=== PATIENT | male | born 1980 ===

== ENCOUNTER 2020-10-07 13:40 | Outpatient (REF) | payer OTHER, SELFPAY ==
[2020-10-07 14:09] LABS: COVID-19 Test Negative (Negative)
== END 2020-10-07 13:41 | disposition home or self-care (01) ==
LOC: HO.LAB 13:40
PROVIDERS: Visit Provider Internal Medicine
DX: Z20.822 Contact with and (suspected) exposure to COVID-19 (principal)
CPT/HCPCS: 36415; 87635; C9803

== ENCOUNTER 2020-10-28 13:53 | Outpatient (REF) | payer OTHER, SELFPAY ==
[2020-10-28 14:19] LABS: COVID-19 Test Negative (Negative)
== END 2020-10-28 13:54 | disposition home or self-care (01) ==
LOC: HO.LAB 13:53
PROVIDERS: Visit Provider Internal Medicine
DX: Z20.822 Contact with and (suspected) exposure to COVID-19 (principal)
CPT/HCPCS: 36415; 87635; C9803

== ENCOUNTER 2021-05-22 11:31 | Outpatient (REF) | payer OTHER, SELFPAY ==
[2021-05-22 12:17] LABS: COVID-19 Test Negative (Negative)
== END 2021-05-22 11:32 | disposition home or self-care (01) ==
LOC: HO.LAB 11:31
PROVIDERS: PCP Internal Medicine; Visit Provider Internal Medicine
DX: Z20.822 Contact with and (suspected) exposure to COVID-19 (principal)
CPT/HCPCS: 36415; 87635; C9803

== ENCOUNTER 2021-06-27 13:29 | Outpatient (REF) | payer OTHER, SELFPAY ==
[2021-06-27 15:03] LABS: Binax Now Covid-19 Ag Negative (Negative)
[2021-06-27 15:04] LABS: Binax Internal Control QC Valid
== END 2021-06-27 13:30 | disposition home or self-care (01) ==
LOC: HO.LAB 13:29
PROVIDERS: Visit Provider Internal Medicine
DX: Z20.822 Contact with and (suspected) exposure to COVID-19 (principal)
CPT/HCPCS: 36415; C9803

== ENCOUNTER → 2022-01-23 14:30 | Outpatient (BNVA) | payer OTHER, SELFPAY | PROVIDERS: PCP Internal Medicine; Visit Provider Nurse Practitioner Family | DX: M62.830 Muscle spasm of back (principal); M96.1 Postlaminectomy syndrome, not elsewhere classified; M47.816 Spondylosis without myelopathy or radiculopathy, lumbar region; M54.16 Radiculopathy, lumbar region; M46.1 Sacroiliitis, not elsewhere classified; R29.898 Other symptoms and signs involving the musculoskeletal system | CPT/HCPCS: 99202 ==

== ENCOUNTER 2022-01-26 12:35 | Outpatient (REF) | payer OTHER, SELFPAY ==
--- NOTE | ~2022-01-26 | XR_ITS ---
EXAMINATION: LUMBAR SPINE AND SACROILIAC JOINTS X-RAYS CLINICAL INFORMATION: Post laminectomy syndrome COMPARISON: None TECHNIQUE: 7 views of the lumbar spine including bilateral oblique and flexion and extension 3 views of the sacroiliac joints FINDINGS: Lumbar spine: There are postsurgical changes with posterior rods and interpedicular screws at L4-L5 and S1. Orthopedic hardware appears intact. There is lucency adjacent to the bilateral S1 pedicular screws questionable for evidence of loosening. No stability on flexion-extension views is seen. Disc spaces are normal. Sacroiliac joints: Sacroiliac joints are normal. No evidence of proliferative or erosive arthritis is seen. XR/XR sacroiliac joint min 3V IMPRESSION: Lumbar spine: Postsurgical changes from L4 to S1. Lucency adjacent to the bilateral S1 interpedicular screws questionable for evidence of loosening. Sacroiliac joints: Unremarkable exam.
--- NOTE | ~2022-01-26 | XR_ITS ---
EXAMINATION: LUMBAR SPINE AND SACROILIAC JOINTS X-RAYS CLINICAL INFORMATION: Post laminectomy syndrome COMPARISON: None TECHNIQUE: 7 views of the lumbar spine including bilateral oblique and flexion and extension 3 views of the sacroiliac joints FINDINGS: Lumbar spine: There are postsurgical changes with posterior rods and interpedicular screws at L4-L5 and S1. Orthopedic hardware appears intact. There is lucency adjacent to the bilateral S1 pedicular screws questionable for evidence of loosening. No stability on flexion-extension views is seen. Disc spaces are normal. Sacroiliac joints: Sacroiliac joints are normal. No evidence of proliferative or erosive arthritis is seen. XR/XR lumbar spine 6V w bending IMPRESSION: Lumbar spine: Postsurgical changes from L4 to S1. Lucency adjacent to the bilateral S1 interpedicular screws questionable for evidence of loosening. Sacroiliac joints: Unremarkable exam.
== END 2022-01-26 12:36 | disposition home or self-care (01) ==
LOC: HO.XRAY 12:35
PROVIDERS: PCP Internal Medicine; Visit Provider Nurse Practitioner Family
DX: M47.816 Spondylosis without myelopathy or radiculopathy, lumbar region (principal); M54.16 Radiculopathy, lumbar region; M96.1 Postlaminectomy syndrome, not elsewhere classified; M46.1 Sacroiliitis, not elsewhere classified
CPT/HCPCS: 72114; 72202

== ENCOUNTER 2022-03-25 12:31 | Outpatient (REF) | payer OTHER, SELFPAY ==
[2022-03-25 13:57] LABS: IDNOW Serial# 16C4AD1C
[2022-03-25 13:58] LABS: COVID-19 Test Negative (Negative)
== END 2022-03-25 12:32 | disposition home or self-care (01) ==
LOC: HO.LAB 12:31
PROVIDERS: Visit Provider Internal Medicine
DX: Z20.822 Contact with and (suspected) exposure to COVID-19 (principal)
CPT/HCPCS: 87635; C9803

== ENCOUNTER 2022-04-22 15:45 | Outpatient (REF) | payer OTHER, SELFPAY ==
--- NOTE | 2022-04-22 10:15 | EMG_ITS ---
Please see scanned EMG / Nerve Conduction Report. MTDD
== END 2022-04-22 15:46 | disposition home or self-care (01) ==
LOC: HO.NEURO 15:45
PROVIDERS: PCP Internal Medicine; Visit Provider Nurse Practitioner Family
DX: M54.16 Radiculopathy, lumbar region (principal); M96.1 Postlaminectomy syndrome, not elsewhere classified; R29.898 Other symptoms and signs involving the musculoskeletal system
CPT/HCPCS: 95885; 95910; 95911

== ENCOUNTER → 2022-04-27 11:15 | Outpatient (BNVA) | payer OTHER, SELFPAY | PROVIDERS: PCP Internal Medicine; Visit Provider Nurse Practitioner Family | DX: M96.1 Postlaminectomy syndrome, not elsewhere classified (principal); M54.16 Radiculopathy, lumbar region; R29.898 Other symptoms and signs involving the musculoskeletal system; M46.1 Sacroiliitis, not elsewhere classified; M47.816 Spondylosis without myelopathy or radiculopathy, lumbar region; M62.830 Muscle spasm of back | CPT/HCPCS: 99212 ==

== ENCOUNTER 2022-06-16 18:05 | Outpatient (REF) | payer OTHER, SELFPAY | END 2022-06-16 18:06 | disposition home or self-care (01) | LOC: HO.MRI 18:05 | PROVIDERS: Visit Provider Nurse Practitioner Family | DX: Z13.89 Encounter for screening for other disorder (principal) ==

== ENCOUNTER 2022-09-24 09:33 | Outpatient (REF) | payer OTHER, SELFPAY ==
--- NOTE | ~2022-09-24 | MR_ITS ---
EXAMINATION: MR LUMBAR SPINE WITHOUT AND WITH CONTRAST CLINICAL INFORMATION: Post laminectomy syndrome. COMPARISON: Lumbar spine radiographs 01/26/2022. TECHNIQUE: Multiplanar MR imaging of the lumbar spine was performed without and with contrast. A total of 10 mL Gadavist was utilized for this examination. FINDINGS: There are chronic postoperative changes of a posterior spinal fusion with transpedicular hardware extending from L4 to S1. Alignment is normal. Vertebral heights are preserved. No acute bone marrow signal changes. There is disc desiccation at multiple levels without substantial loss of intervertebral disc height. The tip of the conus medullaris is located at L1. No mass effect on the conus. Visualized distal cord signal intensity is normal. At L1-L2 the annular contour is normal. No canal or neuroforaminal compromise. At L2-L3 the annular contour is normal. No canal or neuroforaminal compromise. At L3-L4 there is a bulging disc. Bilateral facet degenerative change. No canal stenosis. No mass effect on the traversing or foraminal nerve roots. At L4-L5 the canal is decompressed. No mass effect on the traversing or foraminal nerve roots. At L5-S1 the canal is decompressed. No mass effect on the traversing or foraminal nerve roots. Limited visualization of the retroperitoneal anatomy reveals no abnormal finding. Psoas and paraspinal muscle groups are symmetric. MR/MR lumbar spine wo/w con IMPRESSION: There are chronic postoperative changes of a posterior spinal fusion with transpedicular hardware extending from L4 to S1. There is junctional arthrosis of the articular facet joints above the fusion at the level of L3-L4. No canal stenosis. No mass effect on the traversing or foraminal nerve roots.
== END 2022-09-24 09:34 | disposition home or self-care (01) ==
LOC: HO.MRI 09:33
PROVIDERS: PCP Internal Medicine; Visit Provider Nurse Practitioner Family
DX: M96.1 Postlaminectomy syndrome, not elsewhere classified (principal); M54.16 Radiculopathy, lumbar region; R29.898 Other symptoms and signs involving the musculoskeletal system; M47.816 Spondylosis without myelopathy or radiculopathy, lumbar region
CPT/HCPCS: 72158; A9585

== ENCOUNTER → 2022-11-10 15:44 | Outpatient (BNVA) | payer OTHER, SELFPAY | PROVIDERS: PCP Internal Medicine; Visit Provider Nurse Practitioner Family | DX: M96.1 Postlaminectomy syndrome, not elsewhere classified (principal); M47.26 Other spondylosis with radiculopathy, lumbar region; M46.1 Sacroiliitis, not elsewhere classified; M62.830 Muscle spasm of back; R29.898 Other symptoms and signs involving the musculoskeletal system | CPT/HCPCS: 99212 ==

== ENCOUNTER 2023-09-14 13:52 | Outpatient (AMB) | payer OTHER, SELFPAY ==
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
[2023-09-14 13:58] VITALS: BP 150/80; PULSE 55; O2SAT 100; BMI 32.8
== END 2023-09-14 14:22 | disposition home or self-care (01) ==
PROVIDERS: PCP Internal Medicine; Visit Provider Nurse Practitioner Family
DX: M54.16 Radiculopathy, lumbar region (principal); M96.1 Postlaminectomy syndrome, not elsewhere classified; M47.816 Spondylosis without myelopathy or radiculopathy, lumbar region; R22.2 Localized swelling, mass and lump, trunk; R29.898 Other symptoms and signs involving the musculoskeletal system; M46.1 Sacroiliitis, not elsewhere classified; M62.830 Muscle spasm of back
CPT/HCPCS: 99214

== ENCOUNTER → 2023-09-14 13:52 | Outpatient (BNVA) | payer OTHER, SELFPAY | PROVIDERS: PCP Internal Medicine; Visit Provider Nurse Practitioner Family | DX: M54.16 Radiculopathy, lumbar region (principal); M96.1 Postlaminectomy syndrome, not elsewhere classified; M47.816 Spondylosis without myelopathy or radiculopathy, lumbar region; M46.1 Sacroiliitis, not elsewhere classified; M62.830 Muscle spasm of back; R22.2 Localized swelling, mass and lump, trunk; R29.898 Other symptoms and signs involving the musculoskeletal system | CPT/HCPCS: 99212 ==

== ENCOUNTER 2023-10-18 14:57 | Outpatient (AMB) | payer OTHER, SELFPAY ==
--- NOTE | 2023-10-18 14:58 | MHC.OFFVIS ---
Vital Signs 10/18/23 15:08 Height 5 ft 9 in Weight 217 lb BMI 32.0 BP 156/82 H Blood Pressure Location Rt brachial Position Sitting Pulse 61 Intake Visit Reasons: 2 painful lumps along the mid-lower back midline Intake Note: Patient referred for 2 bumps on back. Present for more than 1yr. Patient thinks bumps are present since last back surgical procedure. Patient c/o: growths have been enlarging. Denies pain, itch, oozing. Accompanied by: Self / Same As Patient Allergies Iodinated Contrast Media Adverse Reaction (Unknown, Verified 10/18/23 15:03) Nausea HPI Comments Details: Patient presents for evaluation of 2 soft tissue mass/lipomas of the back. He has had this for many years time. He wishes to have them evaluated. He has had lipomas elsewhere excised. Chart was reviewed and patient evaluated. Patient has had lower back surgery in the past [facility] Medical History History of Clostridioides difficile infection Allergic rhinitis Hyperlipidemia Depression GERD (gastroesophageal reflux disease) History of fracture of hand Anxiety Obesity (BMI 30.0-34.9) Snoring Chronic left-sided lumbar radiculopathy Failed back syndrome of lumbar spine Surgical History History of lumbar fusion History of appendectomy Social History (Updated 10/18/23 @ 15:05 by HEATHER Portillo) Alcohol intake: never Patient Tobacco Use Status: Never used Tobacco Physical Exam Vital Signs: Last Vital Signs Pulse 61 10/18/23 15:08 BP 156/82 H 10/18/23 15:08 BMI result Body Mass Index 32.0 Back/Spine/Pelvis Other: Lower midline scar from back surgery. Patient has to the left lower back proximally 4 x 3 cm mass consistent with a lipoma. He has a similar mass in the right lower back measuring approximately 3 x 2 cm Assessment & Plan Assessment & Plan (1) Lipoma: Code(s): D17.9 - Benign lipomatous neoplasm, unspecified Category: Surgical Plan I discussed with the patient therapeutic options which are conservative therapy or excision. He would like to consider these. We reviewed risks, benefits, alternatives of lipoma excision x2 which included but not limited to bleeding, infection, recurrence, numbness, pain, scarring. As noted above, patient will think his options over and contact me should he wished to undergo excision. All questions answered. Coding Level of Care Code New Pt Level 4 (97013) Diagnoses Lipoma D17.9
[2023-10-18 15:08] VITALS: BP 156/82; PULSE 61; BMI 32.0
== END 2023-10-18 15:25 | disposition home or self-care (01) ==
PROVIDERS: PCP Internal Medicine; Visit Provider Surgery
DX: D17.9 Benign lipomatous neoplasm, unspecified (principal)
CPT/HCPCS: 99204

== ENCOUNTER → 2023-10-18 14:57 | Outpatient (BNVA) | payer OTHER, SELFPAY | PROVIDERS: PCP Internal Medicine; Visit Provider Surgery | DX: D17.1 Benign lipomatous neoplasm of skin and subcutaneous tissue of trunk (principal) | CPT/HCPCS: 99202 ==

== ENCOUNTER 2023-11-22 13:15 | Outpatient (AMB) | payer OTHER, SELFPAY ==
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
[2023-11-22 13:22] VITALS: BP 136/87; PULSE 61; O2SAT 97; BMI 31.9
== END 2023-11-22 13:43 | disposition home or self-care (01) ==
PROVIDERS: PCP Internal Medicine; Visit Provider Nurse Practitioner Family
DX: M54.16 Radiculopathy, lumbar region (principal); M96.1 Postlaminectomy syndrome, not elsewhere classified; M47.816 Spondylosis without myelopathy or radiculopathy, lumbar region; R29.898 Other symptoms and signs involving the musculoskeletal system; M46.1 Sacroiliitis, not elsewhere classified; M62.830 Muscle spasm of back
CPT/HCPCS: 99214

== ENCOUNTER → 2023-11-22 13:15 | Outpatient (BNVA) | payer OTHER, SELFPAY | PROVIDERS: PCP Internal Medicine; Visit Provider Nurse Practitioner Family | DX: M54.16 Radiculopathy, lumbar region (principal); M96.1 Postlaminectomy syndrome, not elsewhere classified; M47.816 Spondylosis without myelopathy or radiculopathy, lumbar region; M46.1 Sacroiliitis, not elsewhere classified; R29.898 Other symptoms and signs involving the musculoskeletal system; M62.830 Muscle spasm of back | CPT/HCPCS: 99212 ==

== ENCOUNTER 2024-06-27 14:41 | Outpatient (AMB) | payer OTHER, SELFPAY ==
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
[2024-06-27 14:47] VITALS: BP 148/86; PULSE 78; O2SAT 97; BMI 33.8
== END 2024-06-27 14:59 | disposition home or self-care (01) ==
PROVIDERS: PCP Internal Medicine; Visit Provider Nurse Practitioner Family
DX: M96.1 Postlaminectomy syndrome, not elsewhere classified (principal); M47.816 Spondylosis without myelopathy or radiculopathy, lumbar region; M54.16 Radiculopathy, lumbar region; M62.830 Muscle spasm of back; R29.898 Other symptoms and signs involving the musculoskeletal system
CPT/HCPCS: 99214; G2211

== ENCOUNTER → 2024-06-27 14:41 | Outpatient (BNVA) | payer OTHER, SELFPAY | PROVIDERS: PCP Internal Medicine; Visit Provider Nurse Practitioner Family | DX: M96.1 Postlaminectomy syndrome, not elsewhere classified (principal); M62.830 Muscle spasm of back; M47.26 Other spondylosis with radiculopathy, lumbar region; R29.898 Other symptoms and signs involving the musculoskeletal system; Z91.041 Radiographic dye allergy status | CPT/HCPCS: 99212 ==

== ENCOUNTER 2024-09-12 13:16 | Outpatient (REF) | payer OTHER, SELFPAY ==
--- NOTE | ~2024-09-12 | XR_ITS ---
EXAMINATION: XR LUMBOSACRAL SPINE CLINICAL INFORMATION: M96.1 - Postlaminectomy syndrome, not elsewhere classified COMPARISON: 01/26/2022. MR lumbar 09/24/2022. TECHNIQUE: 5 views of the lumbar spine, inclusive of bilateral oblique views, were obtained. FINDINGS: Redemonstration of posterior instrumented fusion of L4-S1 with transpedicular screws, posterior connecting rods, and associated laminectomies. Hardware appears intact. There is significant periscrew lucency surrounding the S1 screws are again noted, similar to the prior exam. Findings could indicate loosening. The L4 on L5 screws appear well seated. There is no fracture, compression deformity, or suspicious bone lesion. There is anatomical sagittal alignment without subluxation. There is normal facet alignment. There are mild degenerative facet changes spanning L3-S1. Bone grafting material surrounding the hardware appears incorporated without significant fragmentation. There is mild disc degeneration L4-5 and L5-S1. Remainder of the intervertebral discs appear preserved. SI joints appear normal. No soft tissue abnormalities aside from mild vascular calcification. XR/XR lumbar spine 4V min IMPRESSION: 1. Redemonstration of posterior instrumented fusion of L4-S1. Once again there is lucency surrounding S1 screws suggesting loosening. Remainder of the hardware appears intact and well seated. 2. There is anatomical alignment without subluxation. 3. There are mild degenerative disc and facet changes spanning L3-S1. Electronically signed by: Renaldo Lloyd MD 09/13/2024 01:39 PM EDT
--- OUTSIDE RECORDS SUMMARY | 2024-09-12 16:09 | XMS_ITS | Clinical Summary ---
Author Organization [facility] Address [address] [place] [address] Care Team Providers Care Oven Worker Name Role Phone Unavailable Primary Care Provider Unavailabl e Social History Tobacco Use Types Packs/Day Years Used Date Smoking Tobacco: Never Assessed Sex and Gender Information Value Date Recorded Sex Assigned at Not on file Gender Identity Not on file Sexual Orientation Not on file Plan of Treatment Health Maintenance Due Date Last Done Comments Hepatitis C Virus Screening 1980 HIV Screening 1993 DTaP/Tdap/Td Vaccines (1 - Tdap) 1999 Hepatitis B Vaccines (1 of 3 - 19+ 3-dose series) 1999 COVID-19 Vaccine (2023-2 5 season) 2024 HPV Vaccines Aged Out No longer eligi ble based on patient's age to complete this topic Pneumococcal Vaccine: Pediat harlan (0-5 Years) and At-Risk Patients (6 to 49 Years) Aged Out No longer eligible b ased on patient's age to complete this topic
--- OUTSIDE RECORDS SUMMARY | 2024-09-12 16:09 | XMS_ITS | Clinical Summary ---
Author Organization [facility] Address [address] [place] [address] Care Team Providers Care Foster Care Worker Name Role Phone Unavailable Primary Care Provider Unavailabl e Social History Tobacco Use Types Packs/Day Years Used Date Smoking Tobacco: Never Assessed Sex and Gender Information Value Date Recorded Sex Assigned at Not on file Gender Identity Not on file Sexual Orientation Not on file Job Start Date Occupation Industry Not on file Not on file Not on file Plan of Treatment Health Maintenance Due Date Last Done Comments Hepatitis B Vaccines (1 of 3 - 3-dose series) 1980 Hepatitis C Screening 1980 COVID-19 Vaccine (#1) 1980 Depression Screening 1992 Preventative Health Evaluation 1998 DTap / Tdap / Td (1 - Tdap) 1999 Influenza Vaccine (#1) 2024 Pneumococcal Vaccine Aged Out No long er eligible based on patient's age to complete this topic RSV Ped < 20 months Aged Out No longe r eligible based on patient's age to complete this topic
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
== END 2024-09-12 13:17 | disposition home or self-care (01) ==
LOC: HO.XRAY 13:16
PROVIDERS: PCP Internal Medicine; Visit Provider Nurse Practitioner Family
DX: M96.1 Postlaminectomy syndrome, not elsewhere classified (principal); M54.16 Radiculopathy, lumbar region; M47.816 Spondylosis without myelopathy or radiculopathy, lumbar region
CPT/HCPCS: 72110

== ENCOUNTER → 2024-09-12 13:21 | Outpatient (BNV) | payer OTHER, SELFPAY | PROVIDERS: PCP Internal Medicine; Visit Provider Radiology Diagnostic Radiology | DX: M96.1 Postlaminectomy syndrome, not elsewhere classified (principal) | CPT/HCPCS: 72110 ==